=== PATIENT | male | born 1985 | race Caucasian/White ===

== ENCOUNTER 2024-10-27 18:20 | Emergency (ER) | payer OTHER ==
[~2024-10-27] VITALS: Ht 188 cm; Wt 100.7 kg
[~2024-10-27 18:20] MED LIST: Ceftin500 MG PO; Percocet 5-3251 EACH PO
[2024-10-27 18:45] VITALS: BP 122/86
[2024-10-27] MEDS ORDERED: IBUP100S PO (19:28)
== END 2024-10-27 19:35 | disposition home or self-care (01) ==
LOC: ER 18:20
DX: S06.0X0A Concussion without loss of consciousness, initial encounter (principal); S00.01XA Abrasion of scalp, initial encounter; W19.XXXA Unspecified fall, initial encounter; Y93.67 Activity, basketball
CPT/HCPCS: 99283